=== PATIENT | male | born 1950 | race African-American/Black ===

== ENCOUNTER 2019-01-20 10:39 | Emergency (ER) | payer MEDICARE, OTHER ==
[~2019-01-20] VITALS: Ht 180.3 cm; Wt 72.6 kg
[~2019-01-20 10:39] MED LIST: ACETAMINOPHEN325 M1 ORAL; ASPIR 8181 MG ORAL; CARVEDILOL3.125 MG ORAL; FAMOTIDINE20 MG ORAL; HUMALOG KW200 UNIT/1 SQ; LISINOPRIL5 MG ORAL; METFORMIN HCL500 M1 ORAL; METFORMIN500 MG/5 M PO; MULTIVITAMINS1 EAC8 ORAL; NITRO-TIME2.5 MG PO; SENNA8.6 M2 PO
[2019-01-20 11:10] VITALS: BP 129/73
--- NOTE | 2019-01-20 12:28 | Emergency Room Report ---
History of Present Illness General Chief Complaint: Eye Problems Source: Patient, Medical Record, EMS Present Illness HPI This patient is brought in from a assisted facility for right eye redness. The patient has a history of congestive heart failure, diabetes, hypertension, hypothyroid, blindness. There are no other complaints. Allergies: Coded Allergies: No Known Allergies (Unverified , 03/18/18) Patient History Past Medical History: see triage record, DM, HTN, CHF, GERD, other - Blindness Social History: Denies: smoking, alcohol use, drug use Reviewed Nursing Documentation: PMH: Agreed; PSxH: Agreed Nursing Documentation-PMH Past Medical History: No History, Except For Hx Cardiac Problems: Yes Hx Hypertension: Yes Hx Diabetes: Yes Hx Cancer: No Hx Gastrointestinal Problems: Yes Hx Neurological Problems: No Review of Systems All Other Systems: negative except mentioned in HPI Physical Exam Vital Signs Date Time Temp Pulse Resp B/P (MAP) Pulse Ox O2 Delivery O2 Flow Rate FiO2 01/20/19 10:41 98.1 57 16 129/73 (91) 98 Room Air Sp02 EP Interpretation: reviewed, normal General Appearance: no apparent distress, alert, GCS 15, non-toxic Head: normocephalic, atraumatic Eyes: right eye other - R. conjunctival erythema with mild surrounding eyelid erythema.; bilateral eye PERRL ENT: hearing grossly normal, normal pharynx, no angioedema, normal voice Neck: full range of motion, supple/symm/no masses Respiratory: chest non-tender, lungs clear, normal breath sounds, no respiratory distress, no retraction, no accessory muscle use, speaking full sentences Cardiovascular #1: regular rate, rhythm, no edema Gastrointestinal: normal bowel sounds, non tender, soft, non-distended, no guarding, no rebound Rectal: deferred Musculoskeletal: back normal, normal range of motion, non-tender Neurologic: alert, motor strength/tone normal, sensory intact, responsive, speech normal Psychiatric: mood/affect normal, no suicidal/homicidal ideation Skin: other Medical Decision Making Diagnostic Impression: Primary Impression: Preseptal cellulitis Additional Impression: Conjunctivitis ER Course This patient has preseptal cellulitis with associated conjunctivitis. Patient' s laboratory work-up is unremarkable. I feel that this can be treated at the assisted facility. I will have the patient start on Bactrim orally. The patient was given 1 dose of IV vancomycin here in the emergency department. The patient's primary care physician was Dr. Ayala but he stated that Dr. Carver is his covering physician. I discussed the case with Dr. Carver and he agreed with the plan that this patient can be treated at the assisted facility. Laboratory Tests Test 01/20/19 12:40 White Blood Count 5.3 K/UL (4.8-10.8) Red Blood Count 4.68 M/UL (4.70-6.10) L Hemoglobin 13.7 G/DL (14.2-18.0) L Hematocrit 40.8 % (42.0-52.0) L Mean Corpuscular Volume 87 FL (80-99) Mean Corpuscular Hemoglobin 29.3 PG (27.0-31.0) Mean Corpuscular Hemoglobin Concent 33.6 G/DL (32.0-36.0) Red Cell Distribution Width 12.2 % (11.6-14.8) Platelet Count 305 K/UL (150-450) Mean Platelet Volume 6.9 FL (6.5-10.1) Neutrophils (%) (Auto) 59.5 % (45.0-75.0) Lymphocytes (%) (Auto) 31.9 % (20.0-45.0) Monocytes (%) (Auto) 5.5 % (1.0-10.0) Eosinophils (%) (Auto) 2.0 % (0.0-3.0) Basophils (%) (Auto) 1.2 % (0.0-2.0) Sodium Level 139 MMOL/L (136-145) Potassium Level 4.0 MMOL/L (3.5-5.1) Chloride Level 105 MMOL/L (98-107) Carbon Dioxide Level 31 MMOL/L (21-32) Anion Gap 3 mmol/L (5-15) L Blood Urea Nitrogen 11 mg/dL (7-18) Creatinine 0.6 MG/DL (0.55-1.30) Estimate Glomerular Filtration Rate > 60 mL/min (>60) Glucose Level 110 MG/DL (74-106) H Calcium Level 8.8 MG/DL (8.5-10.1) Total Bilirubin 0.5 MG/DL (0.2-1.0) Aspartate Amino Transferase (AST) 11 U/L (15-37) L Alanine Aminotransferase (ALT) 16 U/L (12-78) Alkaline Phosphatase 72 U/L (46-116) Total Protein 7.7 G/DL (6.4-8.2) Albumin 3.9 G/DL (3.4-5.0) Globulin 3.8 g/dL Albumin/Globulin Ratio 1.0 (1.0-2.7) Last Vital Signs Date Time Temp Pulse Resp B/P (MAP) Pulse Ox O2 Delivery O2 Flow Rate FiO2 01/20/19 11:10 98.1 58 16 129/73 98 Room Air Status: improved Disposition: [facility] Condition: Improved Referrals: NON PHYSICIAN (PCP) Patient Instructions: Bacterial Conjunctivitis, [id number] Ashwini Culp DO Jan 20, 2019 12:28
[2019-01-20] MEDS ORDERED: Vancomycin 1 GM in NS 275 ML IVPB ONE (12:30)
[2019-01-20 13:03] LABS: BASOPHILS % (AUTO) 1.2 % (0.0-2.0); HEMATOCRIT 40.8 % (42.0-52.0); HEMOGLOBIN 13.7 G/DL (14.2-18.0); LYMPHOCYTES % (AUTO) 31.9 % (20.0-45.0); MEAN CORPUSCULAR VOLUME 87 FL (80-99); MONOCYTES % (AUTO) 5.5 % (1.0-10.0); NEUTROPHILS % (AUTO) 59.5 % (45.0-75.0); PLATELET COUNT 305 K/UL (150-450); RED BLOOD COUNT 4.68 M/UL (4.70-6.10); RED CELL DISTRIBUTION WIDTH 12.2 % (11.6-14.8); WHITE BLOOD COUNT 5.3 K/UL (4.8-10.8)
[2019-01-20 13:10] VITALS: BP 140/63
[2019-01-20 13:11] LABS: ANION GAP 3 mmol/L (5-15); BLOOD UREA NITROGEN 11 mg/dL (7-18); CALCIUM 8.8 MG/DL (8.5-10.1); CARBON DIOXIDE 31 MMOL/L (21-32); CHLORIDE 105 MMOL/L (98-107); CREATININE 0.6 MG/DL (0.55-1.30); SODIUM 139 MMOL/L (136-145)
[2019-01-20 13:16] LABS: ALANINE AMINOTRANSFERASE 16 U/L (12-78); ALBUMIN 3.9 G/DL (3.4-5.0); ALKALINE PHOSPHATASE 72 U/L (46-116); ASPARTATE AMINO TRANSFERASE 11 U/L (15-37); BILIRUBIN,TOTAL 0.5 MG/DL (0.2-1.0)
[2019-01-20] MEDS ORDERED: BACTRIM DS TAB1 EAC1 ORAL (13:53)
[2019-01-20 14:13] VITALS: BP 110/50
[2019-01-20 15:13] VITALS: BP 115/62
== END 2019-01-20 15:13 ==
LOC: EDUNIT# 10:39 → EDBD 10:39 → EMR 11:08
DX: L03.213 Periorbital cellulitis (principal); H10.9 Unspecified conjunctivitis; E11.9 Type 2 diabetes mellitus without complications; K21.9 Gastro-esophageal reflux disease without esophagitis; I11.0 Hypertensive heart disease with heart failure; I50.9 Heart failure, unspecified; E03.9 Hypothyroidism, unspecified
CPT/HCPCS: 36415; 80053; 85025; 96365; 99284; J3370; J7050

== ENCOUNTER 2019-07-05 11:16 | Emergency (ER) | payer MEDICARE, OTHER ==
[~2019-07-05] VITALS: Ht 182.9 cm; Wt 74.8 kg
[~2019-07-05 11:16] MED LIST changes: +BACTRIM DS TAB1 EAC1 ORAL
[2019-07-05 11:20] VITALS: BP 143/68
--- NOTE | 2019-07-05 11:20 | NUR ---
ED Nurse Note: Patient STIVEN ARCE from [facility] c/o left ear pain since last night. 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 Denies ear discharges/ difficulty hearing.
[2019-07-05] MEDS ORDERED: AMOXICILLIN500 MG ORAL (11:21)
[2019-07-05] MEDS ORDERED: CORTISPORIN EAR10 ML OTIC (11:21)
[2019-07-05 11:26] VITALS: BP 143/68
--- NOTE | 2019-07-05 11:26 | NUR ---
ED Nurse Note: Pt cleared by ERMD for discharge. DC instructions/prescription was given and explained to pt and verbalized understanding of teachings. All medical deviecs such as ID band removed. Pt is AAO x4, and left with all personal belongings. Pt was picked up by BLS.
--- NOTE | 2019-07-05 11:26 | Emergency Room Report ---
History of Present Illness General Chief Complaint: Earache Source: Patient, EMS Present Illness HPI Patient presents with complaints of left ear pain reports that is been hurting for the past 2 days Patient is legally blind otherwise denies wearing a hearing aid Denies any trauma Denies any chest pain or shortness of breath denies any cough Paramedics report that the patient had complained of left ear pain there was no other reports of fever at the nursing facility Denies any neck pain dysphasia Allergies: Coded Allergies: No Known Allergies (Unverified , 03/18/18) COVID-19 Screening Contact w/high risk pt: No Recent Travel to affected area: No Experienced COVID-19 symptoms?: No Patient History Past Medical History: see triage record Reviewed Nursing Documentation: PMH: Agreed; PSxH: Agreed Nursing Documentation-PMH Hx Cardiac Problems: Yes Hx Hypertension: Yes Hx Diabetes: Yes Hx Cancer: No Hx Gastrointestinal Problems: Yes Hx Neurological Problems: No Review of Systems All Other Systems: negative except mentioned in HPI Physical Exam Vital Signs Date Time Temp Pulse Resp B/P (MAP) Pulse Ox O2 Delivery O2 Flow Rate FiO2 07/05/19 11:16 97.9 81 16 143/68 (93) 98 Room Air Sp02 EP Interpretation: reviewed, normal General Appearance: no apparent distress Head: normocephalic, atraumatic Eyes: bilateral eye other - Patient is blind ENT: other - Left ear does show some irritation at the canal the tympanic membrane is also mildly erythematous no obvious foreign body mastoid is soft and non-boggy Neck: supple Respiratory: lungs clear, no retraction, no accessory muscle use Cardiovascular #1: regular rate, rhythm Gastrointestinal: non tender, soft Musculoskeletal: other - No obvious focal deficit arthritic changes are noted bilaterally on both knees patient does complain of some discomfort at the left knee as well Neurologic: alert, oriented x3 Skin: no rash Lymphatic: no adenopathy Medical Decision Making Diagnostic Impression: Primary Impression: otitis externa Additional Impression: otitis media ER Course Multiple differentials and consideration including but not limited to neurological, neurosurgical, infectious process Patient's exam is consistent with otitis media and otitis externa patient was provided with prescriptions and also E transcribed to His nursing facility And patient does not require any further emergent intervention at this time Last Vital Signs Date Time Temp Pulse Resp B/P (MAP) Pulse Ox O2 Delivery O2 Flow Rate FiO2 07/05/19 11:20 97.9 81 16 143/68 98 Room Air Status: improved Disposition: SNF Condition: Stable Scripts Neomycin/Polymyxin B Sulf/Hc* (CORTISPORIN EAR SOLUTION*) 10 Ml Solution 2 DROP OTIC FOUR TIMES A DAY for 7 Days, #1 EA Instill in affected ear as directed for 7 days Prov: Leo Brannon DO 07/05/19 Amoxicillin* (AMOXIL*) 500 Mg Capsule 500 MG ORAL THREE TIMES A DAY, #21 CAP Prov: Leo Brannon DO 07/05/19 Referrals: Arjun Vaz MD Patient Instructions: Otitis Media, Adult, [id number], Otitis Externa, Easy- to-Read Additional Instructions: Patient is provided with the discharge instructions notified to follow up with primary doctor in the next 2-3 days otherwise return to the er with any worsening symptoms. Please note that this report is being documented using [employer] technology. This can lead to erroneous entry secondary to incorrect interpretation by the dictating instrument. Leo Brannon DO July 05, 2019 11:26
== END 2019-07-05 11:26 ==
LOC: EDBD 11:16 → EDUNIT# 11:16 → EMR 11:25
DX: H60.92 Unspecified otitis externa, left ear (principal); H66.92 Otitis media, unspecified, left ear; H54.8 Legal blindness, as defined in USA; I10 Essential (primary) hypertension; E11.9 Type 2 diabetes mellitus without complications
CPT/HCPCS: 99283